=== PATIENT | female | born 1955 | race Caucasian/White ===

== ENCOUNTER → 2016-04-05 | Outpatient (CLI) | payer BC | END | disposition home or self-care (01) | LOC: C.PAPS 16:27 | PROVIDERS: ATTEND Obstetrics & Gynecology | DX: Z01.419 Encounter for gynecological examination (general) (routine) without abnormal findings (principal) ==

== ENCOUNTER → 2016-09-27 | Outpatient (CLI) | payer BC ==
--- NOTE | 2016-09-27 15:19 | MAMMOGRAPHY REPORT ---
BILATERAL DIGITAL SCREENING MAMMOGRAM TOMOSYNTHESIS WITH CAD: 09/27/2016 CLINICAL HISTORY: Routine screening. Patient has no complaints. TECHNIQUE: Breast tomosynthesis in addition to standard 2D mammography was performed. Current study was also evaluated with a Computer Aided Detection (CAD) system. COMPARISON: Comparison is made to exams dated: 09/17/2015 mammogram, 09/04/2014 mammogram, 08/29/2013 m ammogram, 08/28/2012 mammogram, 08/28/2011 mammogram, and 08/24/2009 mammogram - [facility] ter. BREAST COMPOSITION: The tissue of both breasts is heterogeneously dense, which may obscure small mas ses. FINDINGS: The parenchymal pattern is unchanged. No developing mass, architectural distortion or clus ter of suspicious microcalcifications is seen in either breast. IMPRESSION: ACR BI-RADS CATEGORY 2: BENIGN There is no mammographic evidence of malignancy. A 1 year screening mammogram is recommended. The pa tient will receive written notification of the results. Approximately 10% of breast cancers are not detected with mammography. A negative mammographic report should not delay biopsy if a clinically suggestive mass is present. Anila Miranda M.D. ay/:09/27/2016 13:01:53 [employer]: Cassia Posey, [facility] letter sent: Normal 1/2 BI-RADS Code: ACR BI-RADS Category 2: Benign
== END | disposition home or self-care (01) ==
LOC: C.MAMM 10:20
PROVIDERS: ATTEND Family Medicine
DX: Z12.31 Encounter for screening mammogram for malignant neoplasm of breast (principal)

== ENCOUNTER → 2017-10-01 | Outpatient (CLI) | payer OTHER ==
--- NOTE | 2017-10-02 14:57 | MAMMOGRAPHY REPORT ---
BILATERAL DIGITAL SCREENING MAMMOGRAM TOMOSYNTHESIS WITH CAD: 10/01/2017 CLINICAL HISTORY: Routine screening. TECHNIQUE: The study was acquired using full field digital technology and interpreted from soft copy. Breast tomosynthesis in addition to standard 2D mammography was performed. Current study was also ev aluated with a Computer Aided Detection (CAD) system. COMPARISON: Comparison is made to exams dated: 09/27/2016 mammogram, 09/17/2015 mammogram, 09/04/2014 ma mmogram, 08/29/2013 mammogram, 08/28/2012 mammogram, and 08/28/2011 mammogram - [facility] ter. BREAST COMPOSITION: The tissue of both breasts is heterogeneously dense, which may obscure small mass es. FINDINGS: There has been no significant interval change compared to prior mammograms. A few benign-a ppearing calcifications. No suspicious spiculated or irregular mass, developing asymmetry, architectu ral distortion or cluster of microcalcifications is seen. IMPRESSION: ACR BI-RADS CATEGORY 1: NEGATIVE There is no mammographic evidence of malignancy. A 1 year screening mammogram is recommended.( 019) The patient will receive written notification of the results. Some breast cancers are not detected with mammography. A negative mammographic report should not arabella y biopsy if a clinically suggestive mass is present. Anila Miranda M.D. ay/:10/01/2017 15:25:48 [employer]: RT Holly(Enrique)(M), [facility] letter sent: Normal 1/2 BI-RADS Code: ACR BI-RADS Category 1: Negative
== END | disposition home or self-care (01) ==
LOC: C.MAMM 10:23
PROVIDERS: ATTEND Family Medicine
DX: Z12.31 Encounter for screening mammogram for malignant neoplasm of breast (principal)

== ENCOUNTER 2019-07-23 10:17 | Observation (INO) ==
[2019-07-23] MEDS ORDERED: dilTIAZem HCl 5 MG/ML 5 ML VIAL IV STA ×3 (10:35→17:01)
[2019-07-23] MEDS ORDERED: SODIUM CHLORIDE 0.9% 1000ML 500 ML IV ONE ×2 (10:35→11:15)
[2019-07-23] MEDS ORDERED: MAGNESIUM SULFATE / D5W 1 GM/100 ML BAG IV STA (10:36)
--- NOTE | 2019-07-23 10:41 | Emergency Department Note ---
Impression & Plan Atrial fibrillation with rapid ventricular response, Palpitation ED Provider Note NAME: LARA APONTE AGE: 63 SEX: F : 1955 ARRIVES VIA: Walk-In INFORMANT: Patient, ED PROVIDER(S): Sam Holley DO CHIEF COMPLAINT: Palpitations HPI: The patient is a 63-year-old female who presented to the emergency department for an evaluation of palpitations. The patient states that she started having palpitations at approximately 4:00 this morning. She states the palpitations woke her up and she felt that her heart was racing. She also describes epigastric pain as heartburn as well as shortness of breath and generalized weakness. She denies any swelling in the legs or syncope. She states that she has not had similar symptoms in the past. She states symptoms are somewhat worsened with exertion and somewhat relieved with rest. She denies having any nausea vomiting or recent illnesses. The patient called her primary care physician and was instructed to come to the emergency department. ROS: See above HPI for pertinent positives & negatives. A total of 10 systems reviewed and were otherwise negative. PAST MEDICAL HISTORY: See Below PAST SURGICAL HISTORY: See Below FAMILY HISTORY: See Below SOCIAL HISTORY: See Below HOME MEDICATIONS: See Below ALLERGIES: See Below VITALS: See Below PHYSICAL EXAMINATION: GENERAL: Patient is awake alert in no acute distress patient is resting comfortably and showing no signs of anxiety EYES: The conjunctivae are clear. The pupils are round and reactive. EARS, NOSE, MOUTH AND THROAT: The nose is without any evidence of any deformity. Mucous membranes are moist. Tongue is midline. NECK: The neck is nontender and supple. RESPIRATORY: Normal respiratory effort is noted there is no evidence of wheezing rhonchi or rales CARDIOVASCULAR: Tachycardic rate with regular rhythm was noted. It was difficult to auscultate for murmur. GASTROINTESTINAL: The abdomen is soft. Abdomen is nontender. MUSCULOSKELETAL/EXTREMITIES: There is no evidence of gross deformity full range of motion is noted in the hips and shoulders. SKIN: There is no obvious evidence of any rash. There are no petechiae, pallor or cyanosis noted. NEUROLOGIC: Patient is awake alert and oriented x3 strength is symmetric patellar reflexes are 2+ bilaterally MEDICAL DECISION MAKING: The patient is a 63-year-old female who presented to the emergency department for an evaluation of palpitations. The patient had acute onset of palpitations earlier today. She has never had similar symptoms in the past. The patient was found to be in atrial fibrillation with rapid ventricular response. The patient was treated with IV fluids IV magnesium and IV Cardizem. The patient was reevaluated multiple times. Her heart rate significantly improved as well as her symptoms. I discussed the patient's laboratory and radiographic studies wit h her. [facility] have agreed to evaluate the patient in the emergency department for further management disposition. Triage Nursing notes reviewed. Prior medical records reviewed Vital Signs: reviewed and remarkable for tachycardia Differential diagnosis: Premature contractions, electrolyte abnormality, cardiac dysrhythmia, thyroid dysfunction, pulmonary embolism, infection, gastrointestinal, as well as other pathologies. ER treatment provided: See below Diagnostics interpreted by me: ECG: EKG was obtained in the emergency department. My interpretation is narrow complex tachycardia at 152 bpm. There were no PVCs. Inferior and lateral ST depressions were noted. There was no previous EKG for comparison. After modified Valsalva the patient's rhythm changed so repeat EKG was obtained. This revealed narrow complex tachycardia [address] and inferior ST depressions were noted. Atrial fibrillation was also noted. Cardiac Monitoring: An order was placed for continuous cardiac monitoring. The monitor shows a rate of 145 with atrial flutter rhythm. Laboratory studies: As stated above and show below. Imaging studies: See below Consultation(s): 1225: I discussed this case with Liliana who was [facility] They have agreed to evaluate the patient in the emergency department for further management and disposition. ED COURSE: Procedures: none Critical Care: I have personally spent greater than 45 minutes of critical care time in the direct management of this patient. This includes bedside care, interpretation of diagnostic studies, and testing, discussion with consultants, patient, and family members, and other required patient management activities. This 45 minutes is in excess of all separately billable procedures. Past Med/Surg History Medical History (Updated 07/23/19 @ 12:36 by Sam Holley DO) Anxiety Depression High cholesterol Hypertension Obstructive sleep apnea Postsurgical ovarian failure Surgical History (Updated 07/23/19 @ 10:39 by Sam Holley DO) History of hysterectomy for benign disease S/P vaginal hysterectomy S/P wisdom tooth extraction Social History (Updated 07/23/19 @ 10:39 by Sam Holley DO) Feels Safe at Home: Yes Smoking Status: Never smoker Hx Alcohol Use: Yes (Occasional) Hx Substance Use: No Allergies Allergies Allergy/AdvReac Type Severity Reaction Status Date / Time No Known Allergies Allergy Verified 07/23/19 11:27 Home Meds Home Medications Medication Instructions Recorded Confirmed calcium citrate 315 mg-vitamin D3 1 tab PO QAM 11/21/18 07/23/19 250 unit tablet multivitamin 1 tab PO QAM 11/21/18 07/23/19 losartan 25 mg tablet 25 mg PO QAM 01/27/19 07/23/19 bupropion HCl 75 mg PO QAM 07/23/19 07/23/19 cyclosporine [Restasis] 1 drp OPHTHALMIC (EYE) Q12H 07/23/19 07/23/19 fluvoxamine 100 mg PO TID 07/23/19 07/23/19 lutein 20 mg PO QAM 07/23/19 07/23/19 meloxicam 7.5 mg PO HS 07/23/19 07/23/19 omeprazole 40 mg PO QAM 07/23/19 07/23/19 pravastatin 10 mg PO HS 07/23/19 07/23/19 Results & Data (ED) Vital Signs Vital Signs - 24 hr 07/23/19 10:23 07/23/19 10:35 07/23/19 10:37 Temperature 36.6 C Temperature Source Oral Oral Pulse Rate 158 H 153 H Pulse Rate from SpO2 Sensor Respiratory Rate 20 18 Respiratory Effort / Characteristics Non-Labored Respiratory Depth Normal Blood Pressure 120/73 Blood Pressure Mean 88 Pulse Oximetry 96 Oxygen Delivery Method Room Air Room Air Sepsis Recent Fever Within 48 Hours No Sepsis Action Taken by Nursing No Action Required 07/23/19 10:39 07/23/19 10:41 07/23/19 10:50 Temperature Temperature Source Pulse Rate 155 H 153 H 151 H Pulse Rate from SpO2 Sensor Respiratory Rate 19 16 16 Respiratory Effort / Characteristics Respiratory Depth Blood Pressure 125/99 Blood Pressure Mean 113 Pulse Oximetry Oxygen Delivery Method Sepsis Recent Fever Within 48 Hours Sepsis Action Taken by Nursing 07/23/19 11:00 07/23/19 11:10 07/23/19 11:20 Temperature Temperature Source Pulse Rate 128 H 134 H 117 H Pulse Rate from SpO2 Sensor 114 H 122 H 101 H Respiratory Rate 15 10 L 10 L Respiratory Effort / Characteristics Respiratory Depth Blood Pressure 105/87 Blood Pressure Mean 91 Pulse Oximetry 94 95 95 Oxygen Delivery Method Sepsis Recent Fever Within 48 Hours Sepsis Action Taken by Nursing 07/23/19 11:27 07/23/19 11:30 07/23/19 11:31 Temperature Temperature Source Pulse Rate 115 H 122 H 117 H Pulse Rate from SpO2 Sensor 87 100 H 110 H Respiratory Rate 13 16 14 Respiratory Effort / Characteristics Respiratory Depth Blood Pressure 126/85 90/67 L Blood Pressure Mean 99 70 Pulse Oximetry 96 95 94 Oxygen Delivery Method Sepsis Recent Fever Within 48 Hours Sepsis Action Taken by Nursing 07/23/19 11:40 07/23/19 11:49 07/23/19 11:51 Temperature Temperature Source Pulse Rate 124 H 146 H 149 H Pulse Rate from SpO2 Sensor 110 H 139 H Respiratory Rate 12 16 16 Respiratory Effort / Characteristics Respiratory Depth Blood Pressure 130/99 Blood Pressure Mean 119 Pulse Oximetry 97 98 Oxygen Delivery Method Sepsis Recent Fever Within 48 Hours Sepsis Action Taken by Nursing 07/23/19 12:00 07/23/19 12:13 Temperature Temperature Source Pulse Rate 148 H 98 H Pulse Rate from SpO2 Sensor 148 H 78 Respiratory Rate 16 14 Respiratory Effort / Characteristics Respiratory Depth Blood Pressure 126/102 H 120/73 Blood Pressure Mean 108 90 Pulse Oximetry 96 86 L Oxygen Delivery Method Sepsis Recent Fever Within 48 Hours Sepsis Action Taken by Long Term Medications Current Medication List: was personally reviewed by me Laboratory Data Attestation: I reviewed the patient's lab results. Result diagrams: 07/23/19 10:40 07/23/19 10:40 Lab Results 07/23/19 07/23/19 07/23/19 Range/Units 10:40 10:40 10:40 WBC 6.93 (4.8-10.8) K/uL RBC 5.49 H (4.2-5.4) M/uL Hgb 16.2 H (12.0-16.0) g/dL Hct 47.3 H (37-47) % MCV 86.2 (80-100) fL MCH 29.5 (25-34) pg MCHC 34.2 (32-36) g/dL RDW Std Deviation 40.4 (36.4-46.3) fL RDW Coeff of Aries 12.8 (11.5-14.5) % Plt Count 266 (130-400) K/uL MPV 9.5 (7.4-10.4) fL Immature Gran % (Auto) 0.4 % Neut % (Auto) 49.4 % Lymph % (Auto) 38.5 % [place] % (Auto) 7.1 % Eos % (Auto) 3.9 % Baso % (Auto) 0.7 % Immature Gran # (Auto) 0.03 H (0.00-0.02) K/uL Neut # (Auto) 3.42 (1.4-6.5) K/uL Lymph # (Auto) 2.67 (1.2-3.4) K/uL [place] # (Auto) 0.49 (0.11-0.59) K/uL Eos # (Auto) 0.27 (0-0.5) K/uL Baso # (Auto) 0.05 (0-0.2) K/uL PT 10.4 (9.0-12.0) Seconds INR 1.0 (0.9-1.1) APTT 29.8 (21.0-31.0) Seconds PTT Ratio 1.1 Sodium 141 (136-145) mmol/L Potassium 4.1 (3.5-5.1) mmol/L Chloride 108 H (98-107) mmol/L Carbon Dioxide 28 (21-32) mmol/L Anion Gap 5.0 (3-11) BUN 21 H (7-18) mg/dl Creatinine 1.06 (0.6-1.2) mg/dl Est Cr Clr Drug Dosing 56.3 ml/min Est GFR ( Amer) 64.7 Est GFR (Non-Af Amer) 55.8 BUN/Creatinine Ratio 20.2 H (10-20) Glucose 123 H (70-99) mg/dl Calcium 9.1 (8.5-10.1) mg/dl Magnesium 2.4 (1.8-2.4) mg/dl Total Bilirubin 0.4 (0.2-1) mg/dl AST 27 (15-37) U/L ALT 29 (12-78) U/L Alkaline Phosphatase 114 (45-117) U/L Troponin I < 0.015 (0-0.045) ng/ml Total Protein 7.8 (6.4-8.2) gm/dl Albumin 3.9 (3.4-5.0) gm/dl Globulin 3.9 (2.5-4.0) gm/dl Albumin/Globulin Ratio 1.0 (0.9-2) TSH 1.740 (0.300-4.500) uIu/ml Urine Color Urine Appearance (Clear) Urine pH (4.5-7.5) Ur Specific [place] (1.000-1.030) Urine Protein (Negative) Urine Glucose (UA) (Negative) Urine Ketones (Negative) Urine Blood (Negative) Urine Nitrite (Negative) Urine Bilirubin (Negative) Urine Urobilinogen (Negative) Ur Leukocyte Esterase (Negative) 07/23/19 Range/Units 11:49 WBC (4.8-10.8) K/uL RBC (4.2-5.4) M/uL Hgb (12.0-16.0) g/dL Hct (37-47) % MCV (80-100) fL MCH (25-34) pg MCHC (32-36) g/dL RDW Std Deviation (36.4-46.3) fL RDW Coeff of Aries (11.5-14.5) % Plt Count (130-400) K/uL MPV (7.4-10.4) fL Immature Gran % (Auto) % Neut % (Auto) % Lymph % (Auto) % [place] % (Auto) % Eos % (Auto) % Baso % (Auto) % Immature Gran # (Auto) (0.00-0.02) K/uL Neut # (Auto) (1.4-6.5) K/uL Lymph # (Auto) (1.2-3.4) K/uL [place] # (Auto) (0.11-0.59) K/uL Eos # (Auto) (0-0.5) K/uL Baso # (Auto) (0-0.2) K/uL PT (9.0-12.0) Seconds INR (0.9-1.1) APTT (21.0-31.0) Seconds PTT Ratio Sodium (136-145) mmol/L Potassium (3.5-5.1) mmol/L Chloride (98-107) mmol/L Carbon Dioxide (21-32) mmol/L Anion Gap (3-11) BUN (7-18) mg/dl Creatinine (0.6-1.2) mg/dl Est Cr Clr Drug Dosing ml/min Est GFR ( Amer) Est GFR (Non-Af Amer) BUN/Creatinine Ratio (10-20) Glucose (70-99) mg/dl Calcium (8.5-10.1) mg/dl Magnesium (1.8-2.4) mg/dl Total Bilirubin (0.2-1) mg/dl AST (15-37) U/L ALT (12-78) U/L Alkaline Phosphatase (45-117) U/L Troponin I (0-0.045) ng/ml Total Protein (6.4-8.2) gm/dl Albumin (3.4-5.0) gm/dl Globulin (2.5-4.0) gm/dl Albumin/Globulin Ratio (0.9-2) TSH (0.300-4.500) uIu/ml Urine Color Yellow Urine Appearance Clear (Clear) Urine pH 7.0 (4.5-7.5) Ur Specific [place] 1.012 (1.000-1.030) Urine Protein Negative (Negative) Urine Glucose (UA) Negative (Negative) Urine Ketones Negative (Negative) Urine Blood Negative (Negative) Urine Nitrite Negative (Negative) Urine Bilirubin Negative (Negative) Urine Urobilinogen Negative (Negative) Ur Leukocyte Esterase Negative (Negative) Administered Medications Discontinued Medications Diltiazem HCl (Cardizem) 10 mg IV NOW STA Stop: 07/23/19 10:36 Last Admin: 07/23/19 10:53 Dose: 10 mg Documented by: [id number] Cosigned by: [id number] Diltiazem HCl (Cardizem) 10 mg IV NOW STA Stop: 07/23/19 11:30 Last Admin: 07/23/19 11:57 Dose: 10 mg Documented by: [id number] Cosigned by: [id number] Sodium Chloride (Nss 1000ml) 500 mls @ 999 mls/hr IV .Q31M ONE Stop: 07/23/19 11:05 Last Infusion: 07/23/19 11:20 Dose: 0 mls/hr Documented by: [id number] Admin: 07/23/19 10:53 Dose: 999 mls/hr Documented by: [id number] Magnesium Sulfate/Dextrose (Magnesium Sulfate / D5w) 1 gm in 100 mls @ 100 mls/hr IV NOW STA Stop: 07/23/19 11:35 Last Infusion: 07/23/19 11:51 Dose: 0 mls/hr Documented by: [id number] Admin: 07/23/19 10:53 Dose: 100 mls/hr Documented by: [id number] Sodium Chloride (Nss 1000ml) 500 mls @ 999 mls/hr IV .Q31M ONE Stop: 07/23/19 11:45 Last Infusion: 07/23/19 11:51 Dose: 0 mls/hr Documented by: [id number] Admin: 07/23/19 11:19 Dose: 999 mls/hr Documented by: [id number] Imaging Data Radiologist's Impression: XR chest 1V portable CLINICAL HISTORY: weakness COMPARISON STUDY: No previous studies for comparison. FINDINGS: The cardiac and mediastinal contours are normal. There is no evidence of focal pulmonary consolidation. There is no evidence of failure. No pleural effusions are visualized.[There is suspected left shoulder calcific tendinopathy. IMPRESSION: No active disease in the chest. ACT 112: Negative or not required by law. Electronically signed by: Philipp Willett M.D. 07/23/2019 10:55 AM Dictated: 07/23/19 1055 Transcribed: 07/23/19 1055 Blood Pressure Blood Pressure Findings: Normal blood pressure Discharge Plan Visit Data Chief Complaint: Cardiac Assessment Stated Complaint: HEART RATE 155 SINCE 4 AM ED Provider: Sam Holley Discharge Problem: Atrial fibrillation with rapid ventricular response, Palpitation Patient Disposition: Being Evaluated by Hospitalist Condition: Good Forms Stand Alone Forms: [facility] Prescriptions Prescriptions: No Action calcium citrate-vitamin D3 [Citracal + D Maximum] 315 mg- 250 unit tablet 1 tab PO QAM RF: 0 multivitamin [Daily Multi-Vitamin] tablet 1 tab PO QAM RF: 0 losartan 25 mg tablet 25 mg PO QAM RF: 0 pravastatin 10 mg tablet 10 mg PO HS RF: 0 fluvoxamine 100 mg tablet 100 mg PO TID RF: 0 bupropion HCl 75 mg tablet 75 mg PO QAM RF: 0 omeprazole 20 mg capsule,delayed release(DR/EC) 40 mg PO QAM RF: 0 meloxicam 7.5 mg tablet 7.5 mg PO HS RF: 0 Restasis 0.05 % [place] 1 drp OPHTHALMIC (EYE) Q12H RF: 0 lutein 20 mg Capsule 20 mg PO QAM RF: 0 Referrals Referrals: Bessie Ruffin MD [Primary Care Provider] -
--- NOTE | 2019-07-23 10:57 | XRay Report ---
XR chest 1V portable CLINICAL HISTORY: weakness COMPARISON STUDY: No previous studies for comparison. FINDINGS: The cardiac and mediastinal contours are normal. There is no evidence of focal pulmonary co nsolidation. There is no evidence of failure. No pleural effusions are visualized.[There is suspected left shoulder calcific tendinopathy. IMPRESSION: No active disease in the chest. ACT 112: Negative or not required by law. Electronically signed by: Philipp Willett M.D. 07/23/2019 10:55 AM
[2019-07-23 11:22] LABS: Basophils # (auto) 0.05 K/uL (0-0.2); Basophils % (auto) 0.7 %; Eosinophils # (auto) 0.27 K/uL (0-0.5); Eosinophils % (auto) 3.9 %; Hematocrit (blood only) 47.3 % (37-47); Hemoglobin 16.2 g/dL (12.0-16.0); Immature Granulocytes # (auto) 0.03 K/uL (0.00-0.02); Immature Granulocytes % (auto) 0.4 %; Lymphocytes # (auto) 2.67 K/uL (1.2-3.4); Lymphocytes % (auto) 38.5 %; Mean Corpuscular Hemoglobin 29.5 pg (25-34); Mean Corpuscular Hgb Conc 34.2 g/dL (32-36); Mean Corpuscular Volume 86.2 fL (80-100); Mean Platelet Volume 9.5 fL (7.4-10.4); Monocytes # (auto) 0.49 K/uL (0.11-0.59); Monocytes % (auto) 7.1 %; Neutrophils # (auto) 3.42 K/uL (1.4-6.5); Neutrophils % (auto) 49.4 %; Platelet Count 266 K/uL (130-400); RDW Coefficient of Variation 12.8 % (11.5-14.5); RDW Standard Deviation 40.4 fL (36.4-46.3); Red Blood Count 5.49 M/uL (4.2-5.4); White Blood Count 6.93 K/uL (4.8-10.8)
[2019-07-23 11:32] LABS: Partial Thromboplastin Ratio 1.1; Partial Thromboplastin Time 29.8 Seconds (21.0-31.0); Prothrombin Time 10.4 Seconds (9.0-12.0)
[2019-07-23 11:43] LABS: Alanine Aminotransferase 29 U/L (12-78); Albumin Level 3.9 gm/dl (3.4-5.0); Aspartate Aminotransferase 27 U/L (15-37); BUN Creatinine Ratio 20.2 (10-20); Bilirubin,Total 0.4 mg/dl (0.2-1); Blood Urea Nitrogen 21 mg/dl (7-18); Calcium 9.1 mg/dl (8.5-10.1); Carbon Dioxide 28 mmol/L (21-32); Chloride 108 mmol/L (98-107); Creatinine Clr Calc Pharmacy 56.3 ml/min; Est GFR (African American) 64.7; Est GFR (Non-African American) 55.8; Globulin 3.9 gm/dl (2.5-4.0); Glucose 123 mg/dl (70-99); Magnesium 2.4 mg/dl (1.8-2.4); Potassium 4.1 mmol/L (3.5-5.1); Sodium 141 mmol/L (136-145); Total Protein 7.8 gm/dl (6.4-8.2)
[2019-07-23 11:52] LABS: Alkaline Phosphatase 114 U/L (45-117); Troponin I < 0.015 ng/ml (0-0.045)
[2019-07-23 11:57] LABS: Appearance Urine Clear (Clear); Bilirubin Urine Negative (Negative); Blood Urine Negative (Negative); Color Urine Yellow; Glucose Urine UA Negative (Negative); Ketones Urine Negative (Negative); Leukocyte Esterase Urine Negative (Negative); Nitrite Urine Negative (Negative); Protein Urine Negative (Negative); Specific Gravity Urine 1.012 (1.000-1.030); Urobilinogen Urine Negative (Negative)
[2019-07-23] MEDS ORDERED: Heparin IV Standard *NO* Bolus IV ONE ×2 (12:39→15:50)
[2019-07-23] MEDS: HEPARIN SODIUM/DEXTROSE 25,000 UNITS/500 ML BAG IV SCH ×2 (13:06→14:35)
[2019-07-23] MEDS ORDERED: D5W AND NSS 1,000 ML IV SCH (13:15)
--- NOTE | 2019-07-23 13:58 | History & Physical Report ---
Date of Service July 23, 2019 Assessment & Plan (1) Atrial flutter with rapid ventricular response: 63-year-old female with history of hypertension, dyslipidemia, obstructive sleep apnea on CPAP, And other problems noted below presenting with palpitations since early this morning. #1 new onset atrial flutter, with rapid ventricular response Awakened by palpitations around 4 AM, heart rate checked with her home pulse oximeter which read 150s Patient's blood pressure is stable, saturating well on room air Given IV diltiazem 10 mg x 2 doses, initially improved, but heart rate again increased to the 120s, occasionally in the 140s start diltiazem drip Chads Vasc score is at least 2 Continue with heparin drip, standard dose,but no bolus Initial troponin negative, check 2 more times Check echocardiogram Shoulder Joiner consulted N.p.o. except medications, IV fluids ordered #2 hypertension Continue losartan 25 mg daily #3 dyslipidemia Continue pravastatin 10 mg daily #4 obstructive sleep apnea Continue CPAP while admitted #5 irritable bowel syndrome Continue omeprazole #6 generalized anxiety disorder Continue Wellbutrin and Luvox DVT prophylaxis On heparin drip Status Full code as per patient Disposition Lives with family at home Anticipate discharge to home when medically stable Follow-up with porcelain technician Follow-up with primary care physician Dr. Bessie Ruffin Admission and Anticipated Discharge Date Admission Date: 63-year-old female with history of History of Present Illness 63-year-old female with history of hypertension, dyslipidemia, sleep apnea on C PAP, irritable bowel syndrome, generalized disorder Presenting with palpitations and elevated heart rate since earlier this morning. Patient was at her baseline state of health until this morning around 4 AM, patient was awakened by sensation of palpitations. When she checked her heart rate using her home pulse oximeter, it showed heart rate of 155. It was associated with heartburn, for which the patient took Maalox, which alleviated the heartburn. She woke up around 8 AM, still with palpitations and heart rate was in the 150s. No chest pain, shortness of breath, dizziness, diaphoresis. She called her primary care physician's office, and was directed to the emergency room. At the ER, the patient was received with heart rate of 150s, blood pressure was stable. EKG showed atrial flutter with RVR. Initial troponin negative. Given a total of 2 doses of IV diltiazem 10 mg an hour apart, and was started on a heparin drip with no bolus. Heart rate improved to the high 90s, up to 120s. On my exam, the patient is seen sitting up in bed, comfortable, not in distress. She states that her palpitations have resolved since admission. Denies active shortness of breath, chest pain, dizziness, nausea. Monitor showing heart rate of 120s during my exam. No other symptoms Primary Care Provider: Bessie Ruffin MD Allergies Allergy/AdvReac Type Severity Reaction Status Date / Time No Known Allergies Allergy Verified 07/23/19 11:27 Home Medications Home Medications Medication Instructions Recorded Confirmed Type calcium citrate 315 mg-vitamin D3 1 tab PO QAM 11/21/18 07/23/19 History 250 unit tablet multivitamin 1 tab PO QAM 11/21/18 07/23/19 History losartan 25 mg tablet 25 mg PO QAM 01/27/19 07/23/19 History bupropion HCl 75 mg PO QAM 07/23/19 07/23/19 History cyclosporine [Restasis] 1 drp OPHTHALMIC (EYE) Q12H 07/23/19 07/23/19 History fluvoxamine 100 mg PO TID 07/23/19 07/23/19 History lutein 20 mg PO QAM 07/23/19 07/23/19 History meloxicam 7.5 mg PO HS 07/23/19 07/23/19 History omeprazole 40 mg PO QAM 07/23/19 07/23/19 History pravastatin 10 mg PO HS 07/23/19 07/23/19 History Past Med/Surg History Medical History (Updated 07/23/19 @ 13:52 by Christophe Giron MD) Anxiety Depression High cholesterol Hypertension Obstructive sleep apnea Postsurgical ovarian failure Surgical History (Updated 07/23/19 @ 10:39 by Sam Holley DO) History of hysterectomy for benign disease S/P vaginal hysterectomy S/P wisdom tooth extraction Social History (Updated 07/23/19 @ 10:39 by Sam Holley DO) Feels Safe at Home: Yes Smoking Status: Never smoker Hx Alcohol Use: Yes (Occasional) Hx Substance Use: No Review of Systems Review of Systems: All systems reviewed & are unremarkable except as noted in HPI & below Physical Exam Physical Exam: General- oriented x 3, not in distress, speaks in sentences with no effort or accessory muscle use Head- atraumatic Eyes- PERRL, EOMI, anicteric ENT- oropharynx clear Neck- supple, no JVD, no adenopathy, no thyromegaly; carotids +2/2, no bruits appreciated Lungs- clear to auscultation bilaterally, no rales/wheezes Heart- normal rate, irregularly irregular rhythm; no murmur, no gallop, no rub appreciated Abdomen- normal bowel sounds, nondistended, soft, nontender, no masses or hepatosplenomegaly Extremities- no pretibial edema, no calf tenderness; peripheral pulses intact Neuro- alert, oriented x 3; CN 2-12 grossly intact; motor 5/5 bilaterally;sensation 100% on all extremities; no other gross focal neurologic deficits Skin- warm & dry Results & Data Results & Data ([facility]) Vital Signs (Past 12 Hours) Vital Signs Temp Pulse Resp BP Pulse Ox 07/23/19 13:40 77 12 07/23/19 13:31 107 H 14 132/88 07/23/19 13:30 107 H 97 07/23/19 13:20 136 H 16 07/23/19 13:12 120 H 15 148/84 H 96 07/23/19 13:00 134 H 21 128/87 97 07/23/19 12:50 112 H 16 93 07/23/19 12:40 122 H 17 07/23/19 12:30 98 H 14 111/69 96 07/23/19 12:20 102 H 13 97 07/23/19 12:13 98 H 14 120/73 86 L 07/23/19 12:00 148 H 16 126/102 H 96 07/23/19 11:51 149 H 16 07/23/19 11:49 146 H 16 130/99 98 07/23/19 11:40 124 H 12 97 07/23/19 11:31 117 H 14 90/67 L 94 07/23/19 11:30 122 H 16 95 07/23/19 11:27 115 H 13 126/85 96 07/23/19 11:20 117 H 10 L 95 07/23/19 11:10 134 H 10 L 95 07/23/19 11:00 128 H 15 105/87 94 07/23/19 10:50 151 H 16 07/23/19 10:41 153 H 16 07/23/19 10:39 155 H 19 125/99 07/23/19 10:37 153 H 18 07/23/19 10:23 36.6 C 158 H 20 120/73 96 Laboratory Results Laboratory Results - last 24 hr 07/23/19 07/23/19 07/23/19 10:40 10:40 10:40 WBC 6.93 RBC 5.49 H Hgb 16.2 H Hct 47.3 H MCV 86.2 MCH 29.5 MCHC 34.2 RDW Std Deviation 40.4 RDW Coeff of Aries 12.8 Plt Count 266 MPV 9.5 Immature Gran % (Auto) 0.4 Neut % (Auto) 49.4 Lymph % (Auto) 38.5 [place] % (Auto) 7.1 Eos % (Auto) 3.9 Baso % (Auto) 0.7 Immature Gran # (Auto) 0.03 H Neut # (Auto) 3.42 Lymph # (Auto) 2.67 [place] # (Auto) 0.49 Eos # (Auto) 0.27 Baso # (Auto) 0.05 PT 10.4 INR 1.0 APTT 29.8 PTT Ratio 1.1 Sodium 141 Potassium 4.1 Chloride 108 H Carbon Dioxide 28 Anion Gap 5.0 BUN 21 H Creatinine 1.06 Est Cr Clr Drug Dosing 56.3 Est GFR ( Amer) 64.7 Est GFR (Non-Af Amer) 55.8 BUN/Creatinine Ratio 20.2 H Glucose 123 H Calcium 9.1 Magnesium 2.4 Total Bilirubin 0.4 AST 27 ALT 29 Alkaline Phosphatase 114 Troponin I < 0.015 Total Protein 7.8 Albumin 3.9 Globulin 3.9 Albumin/Globulin Ratio 1.0 TSH 1.740 Urine Color Urine Appearance Urine pH Ur Specific Mineral Urine Protein Urine Glucose (UA) Urine Ketones Urine Blood Urine Nitrite Urine Bilirubin Urine Urobilinogen Ur Leukocyte Esterase 07/23/19 11:49 WBC RBC Hgb Hct MCV MCH MCHC RDW Std Deviation RDW Coeff of Aries Plt Count MPV Immature Gran % (Auto) Neut % (Auto) Lymph % (Auto) [place] % (Auto) Eos % (Auto) Baso % (Auto) Immature Gran # (Auto) Neut # (Auto) Lymph # (Auto) [place] # (Auto) Eos # (Auto) Baso # (Auto) PT INR APTT PTT Ratio Sodium Potassium Chloride Carbon Dioxide Anion Gap BUN Creatinine Est Cr Clr Drug Dosing Est GFR ( Amer) Est GFR (Non-Af Amer) BUN/Creatinine Ratio Glucose Calcium Magnesium Total Bilirubin AST ALT Alkaline Phosphatase Troponin I Total Protein Albumin Globulin Albumin/Globulin Ratio TSH Urine Color Yellow Urine Appearance Clear Urine pH 7.0 Ur Specific Mineral 1.012 Urine Protein Negative Urine Glucose (UA) Negative Urine Ketones Negative Urine Blood Negative Urine Nitrite Negative Urine Bilirubin Negative Urine Urobilinogen Negative Ur Leukocyte Esterase Negative ECG Additional Comments: Heart rate 152, atrial flutter Code Status & VTE Plan Code Status Full code as per patient VTE Prophylaxis Plan VTE Prophylaxis will be ordered: Yes
[2019-07-23] MEDS ORDERED: STAT IV Infusion **Titration per Protocol STA (15:50)
[2019-07-23] MEDS ORDERED: HEPARIN SODIUM/DEXTROSE 25,000 UNITS/500 ML BAG IV SCH (15:50)
[2019-07-23] MEDS ORDERED: ACETAMINOPHEN 325 MG TAB PO PRN (15:50)
[2019-07-23] MEDS ORDERED: dilTIAZem HCL 125 MG in DEXTROSE 5% 100 ML IV SCH (15:50)
[2019-07-23] MEDS: FLUVOXAMINE MALEATE 50 MG TAB PO SCH ×2 (16:53→20:20)
[2019-07-23] MEDS ORDERED: dilTIAZem HCl 5 MG/ML 5 ML VIAL IV ONE (16:56)
--- NOTE | 2019-07-23 17:27 | Cardiology Consultation ---
Date of Consultation July 23, 2019 Assessment & Plan (1) Atrial flutter with rapid ventricular response: (2) Palpitation: (3) HTN (hypertension): Recommend 20 mg IV Cardizem now. Titrate diltiazem infusion to 10 mg/h. Initiate oral beta-jose therapy, metoprolol 25 mg twice daily, first dose now. Continue IV heparin infusion. Discussed potential need for external direct-current cardioversion. Recommend medical management/rate control for the time being. Also discussed need for oral anticoagulation. Reviewed risk / benefit of DOAC vs. coumadin. Recommend transition to Eliquis prior to discharge. Bedside 2D transthoracic echocardiogram ordered with results pending. I will continue to follow closely during hospitalization. Thank you for allowing me to participate in the care of your patient. History of Present Illness Reason for Consultation: Atrial flutter with rapid ventricular response Requesting Physician: Dr. Giron Attending Physician: Christophe Giron MD History of Present Illness Patient seen and examined at the bedside. Reports episode of palpitations and heartburn awakening her from sleep at approximately 4 AM. Patient fell back asleep until approximately 8 AM however when she awoke she checked her heart rate via pulse oximeter. Her heart rate was approximately 150 bpm. Subsequently came to the emergency department for evaluation and treatment. ECG confirms presence of atrial flutter with variable AV block, and rapid ventricular response. Patient notes faint palpitations at this time. Denies chest pain or dyspnea at rest. Notes fatigue and mild dyspnea with exertion today. Denies lightheadedness, dizziness, syncope, or near syncope. Denies prior history of atrial dysrhythmias, coronary disease, congestive heart failure, diabetes, CVA, or rheumatic fever as a child. Intravenous Cardizem initiated in the emergency department. Heart rate remains elevated at approximate 150 bpm. Telemetry confirms atrial flutter. Denies any excessive caffeine or alcohol intake. No fever, chills, cough, or sick cont acts. Offers no other concerns/complaints at this time. Allergies Allergy/AdvReac Type Severity Reaction Status Date / Time No Known Allergies Allergy Verified 07/23/19 11:27 Home Medications Home Medications Medication Instructions Recorded Confirmed Type calcium citrate 315 mg-vitamin D3 1 tab PO QAM 11/21/18 07/23/19 History 250 unit tablet multivitamin 1 tab PO QAM 11/21/18 07/23/19 History losartan 25 mg tablet 25 mg PO QAM 01/27/19 07/23/19 History bupropion HCl 75 mg PO QAM 07/23/19 07/23/19 History cyclosporine [Restasis] 1 drp OPHTHALMIC (EYE) Q12H 07/23/19 07/23/19 History fluvoxamine 100 mg PO TID 07/23/19 07/23/19 History lutein 20 mg PO QAM 07/23/19 07/23/19 History meloxicam 7.5 mg PO HS 07/23/19 07/23/19 History omeprazole 40 mg PO QAM 07/23/19 07/23/19 History pravastatin 10 mg PO HS 07/23/19 07/23/19 History Patient History Medical History Anxiety Depression High cholesterol Hypertension Obstructive sleep apnea Postsurgical ovarian failure Surgical History History of hysterectomy for benign disease S/P vaginal hysterectomy S/P wisdom tooth extraction Social History Preferred Language: Estonian Communication Ability: Effective Client Administrator Required: No Beliefs That Will Affect Care: None Current Living Situation: Spouse Other Information That Helps Us Care for You: No Feels Safe at Home: Yes Safety Concerns: Feels Safe At This Time Smoking Status: Never smoker Do You Dip or Chew Tobacco: No ; Second Hand Exposure: No ; Tobacco Cessation Education Requested by Patient: No Hx Alcohol Use: No Hx Substance Use: No Review of Systems Review of Systems: All systems reviewed & are unremarkable except as noted in HPI & below Physical Exam Constitutional: well developed and well nourished; no acute distress and not ill appearing Respiratory: normal respiratory effort, lungs clear to auscultation Auscultation: no crackles, no rales, no rhonchi and no wheezes Cardiovascular: Rate/Rhythm: + tachycardic and + irregularly irregular Heart Sounds: normal S1 and normal S2; no murmur Vessels: no JVD and no carotid bruit Extremities: no edema Gastrointestinal (Abdomen): Inspection/Auscultation: abdomen normal to inspection and normal bowel sounds; abdomen not distended Percussion/Palpation: abdomen soft; abdomen nontender, no guarding and abdomen not rigid Musculoskeletal: Extremities: strength 5/5 throughout Skin: no rashes, warm and dry Neurologic: moves all extremities; no focal motor deficits Speech / Cognition: normal speech Motor/Sensory: no tremor Psychiatric: A+Ox3, euthymic affect Results & Data ([facility]) Vital Signs (Past 12 Hours) Vital Signs Temp Pulse Pulse Resp BP BP Pulse Ox 07/23/19 14:37 36.7 C 133 H 16 115/71 98 07/23/19 14:20 119 H 13 07/23/19 14:10 153 H 13 07/23/19 14:00 83 14 124/97 07/23/19 13:50 86 07/23/19 13:40 77 12 07/23/19 13:31 107 H 14 132/88 07/23/19 13:30 107 H 97 07/23/19 13:20 136 H 16 07/23/19 13:12 120 H 15 148/84 H 96 07/23/19 13:00 134 H 21 128/87 97 07/23/19 12:50 112 H 16 93 07/23/19 12:40 122 H 17 07/23/19 12:30 98 H 14 111/69 96 07/23/19 12:20 102 H 13 97 07/23/19 12:13 98 H 14 120/73 86 L 07/23/19 12:00 148 H 16 126/102 H 96 07/23/19 11:51 149 H 16 07/23/19 11:49 146 H 16 130/99 98 07/23/19 11:40 124 H 12 97 07/23/19 11:31 117 H 14 90/67 L 94 07/23/19 11:30 122 H 16 95 07/23/19 11:27 115 H 13 126/85 96 07/23/19 11:20 117 H 10 L 95 07/23/19 11:10 134 H 10 L 95 07/23/19 11:00 128 H 15 105/87 94 07/23/19 10:50 151 H 16 07/23/19 10:41 153 H 16 07/23/19 10:39 155 H 19 125/99 07/23/19 10:37 153 H 18 07/23/19 10:23 36.6 C 158 H 20 120/73 96
[2019-07-23] MEDS: RESTASIS EYE DROPS: ORDER AWAITING ACTION SCH (17:42)
[2019-07-23] MEDS ORDERED: METOPROLOL TARTRATE 25 MG TAB PO ONE (17:45)
[2019-07-23 19:54] LABS: Partial Thromboplastin Ratio 2.1
[2019-07-23 20:06] LABS: Partial Thromboplastin Time 57.2 Seconds (21.0-31.0)
[2019-07-23] MEDS: METOPROLOL TARTRATE 25 MG TAB PO SCH (20:20)
[2019-07-23] MEDS ORDERED: PRAVASTATIN SOD 10 MG TAB PO SCH (21:00)
[2019-07-23] MEDS ORDERED: Nursing to Pharmacy Communication ONE (21:24)
[2019-07-24] MEDS: RESTASIS EYE DROPS: ORDER AWAITING ACTION SCH ×2 (01:15→08:25)
[2019-07-24 07:05] LABS: Hematocrit (blood only) 42.3 % (37-47); Mean Corpuscular Hemoglobin 28.3 pg (25-34); Mean Corpuscular Hgb Conc 33.1 g/dL (32-36); Mean Corpuscular Volume 85.6 fL (80-100); Mean Platelet Volume 9.5 fL (7.4-10.4); Platelet Count 218 K/uL (130-400); RDW Coefficient of Variation 12.8 % (11.5-14.5); RDW Standard Deviation 39.9 fL (36.4-46.3); Red Blood Count 4.94 M/uL (4.2-5.4)
[2019-07-24 07:25] LABS: Partial Thromboplastin Ratio 2.2
[2019-07-24 07:33] LABS: Partial Thromboplastin Time 62.5 Seconds (21.0-31.0)
[2019-07-24 07:45] LABS: BUN Creatinine Ratio 21.4 (10-20); Calcium 9.1 mg/dl (8.5-10.1); Creatinine Clr Calc Pharmacy 60.5 ml/min; Est GFR (African American) 70.3; Est GFR (Non-African American) 60.6; Potassium 4.3 mmol/L (3.5-5.1)
[2019-07-24] MEDS: FLUVOXAMINE MALEATE 50 MG TAB PO SCH ×2 (08:21→13:12)
[2019-07-24] MEDS ORDERED: Nursing to Pharmacy Communication ONE ×2 (08:26→09:41)
[2019-07-24 08:37] LABS: Basophils % (auto) 0.9 %; Eosinophils % (auto) 5.1 %; Immature Granulocytes % (auto) 0.4 %; Lymphocytes % (auto) 50.7 %; Monocytes % (auto) 7.1 %; Neutrophils % (auto) 35.8 %
[2019-07-24 08:38] LABS: Basophils # (auto) 0.06 K/uL (0-0.2); Eosinophils # (auto) 0.36 K/uL (0-0.5); Immature Granulocytes # (auto) 0.03 K/uL (0.00-0.02); Lymphocytes # (auto) 3.55 K/uL (1.2-3.4); Monocytes # (auto) 0.05 K/uL (0.11-0.59)
[2019-07-24] MEDS ORDERED: [UNRECOGNIZED DRUG - REMARK] SCH (09:00)
[2019-07-24] MEDS ORDERED: PANTOprazole 40 MG TAB PO SCH (09:00)
[2019-07-24] MEDS ORDERED: buPROPion HCl 75 MG TABLET PO SCH (09:00)
[2019-07-24] MEDS ORDERED: CALCIUM CITRATE 950 MG TAB PO SCH (09:00)
[2019-07-24] MEDS ORDERED: LOSARTAN POTASSIUM 25 MG TAB PO SCH (09:00)
[2019-07-24] MEDS ORDERED: MULTIVITAMIN TAB PO SCH (09:00)
[2019-07-24] MEDS ORDERED: APIXABAN 5 MG TABLET PO SCH (09:45)
[2019-07-24] MEDS: METOPROLOL TARTRATE 25 MG TAB PO SCH (10:08)
--- NOTE | 2019-07-24 10:55 | Cardiology Progress Note ---
Date of Service July 24, 2019 Assessment & Plan (1) Atrial flutter with rapid ventricular response: (2) Palpitation: (3) HTN (hypertension): Patient converted to sinus rhythm at approximately 6 PM 07/23/2019. Continue oral metoprolol tartrate, 25 mg twice daily. Transition IV heparin to Eliquis 5 mg twice daily. Resting 2D transthoracic echocardiogram demonstrates preserved LV systolic function without significant valvular pathology. Patient may be discharged from a cardiovascular perspective. Instructed she may take an additional 25 mg of metoprolol if palpitations/atrial flutter recurs. I will see her for outpatient cardiology follow-up in 1 to 2 weeks. Subjective Patient seen and examined at the bedside. Converted to sinus rhythm at approximately 6 PM yesterday. IV diltiazem discontinued. Feeling well from a cardiovascular perspective today. Denies palpitations. Tolerated her a.m. meal. No signs/symptoms of GI/ blood loss. Has many questions regarding prognosis related to atrial flutter. Review of Systems Review of Systems: All systems reviewed & are unremarkable except as noted in HPI & below Physical Exam Constitutional: well developed and well nourished; no acute distress and not ill appearing Respiratory: normal respiratory effort, lungs clear to auscultation Auscultation: no crackles, no rales, no rhonchi and no wheezes Cardiovascular: Rate/Rhythm: regular rate and regular rhythm Heart Sounds: normal S1 and normal S2; no murmur Vessels: no JVD and no carotid bruit Extremities: no edema Gastrointestinal (Abdomen): Inspection/Auscultation: abdomen normal to inspection and normal bowel sounds; abdomen not distended Percussion/Palpation: abdomen soft; abdomen nontender, no guarding and abdomen not rigid Musculoskeletal: Extremities: strength 5/5 throughout Skin: no rashes, warm and dry Neurologic: moves all extremities; no focal motor deficits Speech / Cognition: normal speech Motor/Sensory: no tremor Psychiatric: A+Ox3, euthymic affect Results & Data Vital Signs (Past 12 Hours) Vital Signs Temp Pulse Pulse Resp BP Pulse Ox 07/24/19 07:42 36.5 C 68 17 115/80 97 07/24/19 03:56 36.4 C L 64 18 109/73 95 07/23/19 23:36 36.4 C L 74 16 93/63 L 96
--- NOTE | 2019-07-24 13:21 | Hospitalist Progress Note ---
Date of Service July 24, 2019 Assessment & Plan (1) Atrial flutter with rapid ventricular response: Patient is a 63 yr female with H/O hypertension, dyslipidemia, obstructive sleep apnea on CPAP presents with palpitations. New onset atrial flutter, with rapid ventricular response CXR:No active disease in the chest. ECHO: No significant valvular pathology. TSH:1.7 Cardiac enzymes negative Continue metoprolol 25 mg twice daily IV heparin transition to Eliquis 5 mg twice daily Appreciate cardiology input Needs follow-up with cardiology in 1 to 2 weeks Hypertension Continue losartan 25 mg daily, Metoprolol Dyslipidemia Continue pravastatin Obstructive sleep apnea Continue CPAP Irritable bowel syndrome Continue omeprazole Generalized anxiety disorder Continue Wellbutrin, Luvox DVT Px: Eliquis Status Full code Disposition Plan to discharge home today Admission and Anticipated Discharge Date Admission Date: July 23, 2019 Subjective Patient is seen and examined at bedside Converted to sinus rhythm yesterday Denies any chest pain, shortness of breath, dizziness, nausea, abdominal pain Plan to be discharged home today Review of Systems Review of Systems: All systems reviewed & are unremarkable except as noted in HPI & below Physical Exam Physical Exam: Physical Exam: Vitals signs as noted above General Appearance:Moderately built and nourished, no apparent distress Head: normocephalic, Atraumatic Eyes: normal inspection, EOMI Neck: supple, Trachea midline Respiratory/Chest: Normal breath sounds, CTA, No accessory muscle use Cardiovascular: S1, S2, No murmur Abdomen/GI:Soft, Non tender, Bowel sounds present Extremities/Musculoskelatal:normal inspection, no edema Neurologic/Psych:AAOX3, grossly no focal neurological deficits Skin: normal color, warm Results & Data Results & Data ([facility]) Vital Signs (Past 12 Hours) Vital Signs Temp Pulse Pulse Resp BP Pulse Ox 07/24/19 11:10 36.8 C 64 17 127/72 95 07/24/19 07:42 36.5 C 68 17 115/80 97 07/24/19 03:56 36.4 C L 64 18 109/73 95 Laboratory Results Short CBC 07/24/19 Range/Units 06:44 WBC 7.00 (4.8-10.8) K/uL Hgb 14.0 (12.0-16.0) g/dL Hct 42.3 (37-47) % Plt Count 218 (130-400) K/uL BMP 07/24/19 06:44 Sodium 140 Potassium 4.3 Chloride 109 H Carbon Dioxide 26 BUN 21 H Creatinine 0.99 Glucose 103 H Calcium 9.1 Cardiac Enzymes 07/23/19 07/23/19 Range/Units 16:08 21:47 Troponin I < 0.015 < 0.015 (0-0.045) ng/ml
--- NOTE | 2019-07-24 13:39 | Discharge Summary ---
Date of Service July 24, 2019 Admission HPI Per Admitting Provider 63-year-old female with history of hypertension, dyslipidemia, sleep apnea on CPAP, irritable bowel syndrome, generalized disorder Presenting with palpitations and elevated heart rate since earlier this morning. Patient was at her baseline state of health until this morning around 4 AM, patient was awakened by sensation of palpitations. When she checked her heart rate using her home pulse oximeter, it showed heart rate of 155. It was associated with heartburn, for which the patient took Maalox, which alleviated the heartburn. She woke up around 8 AM, still with palpitations and heart rate was in the 150s. No chest pain, shortness of breath, dizziness, diaphoresis. She called her primary care physician's office, and was directed to the emergency room. At the ER, the patient was received with heart rate of 150s, blood pressure was stable. EKG showed atrial flutter with RVR. Initial troponin negative. Given a total of 2 doses of IV diltiazem 10 mg an hour apart, and was started on a heparin drip with no bolus. Heart rate improved to the high 90s, up to 120s. On my exam, the patient is seen sitting up in bed, comfortable, not in distress. She states that her palpitations have resolved since admission. Denies active shortness of breath, chest pain, dizziness, nausea. Monitor showing heart rate of 120s during my exam. No other symptoms Admission Exam Per Admitting Provider Physical Exam Physical Exam: General- oriented x 3, not in distress, speaks in sentences with no effort or accessory muscle use Head- atraumatic Eyes- PERRL, EOMI, anicteric ENT- oropharynx clear Neck- supple, no JVD, no adenopathy, no thyromegaly; carotids +2/2, no bruits appreciated Lungs- clear to auscultation bilaterally, no rales/wheezes Heart- normal rate, irregularly irregular rhythm; no murmur, no gallop, no rub appreciated Abdomen- normal bowel sounds, nondistended, soft, nontender, no masses or hepatosplenomegaly Extremities- no pretibial edema, no calf tenderness; peripheral pulses intact Neuro- alert, oriented x 3; CN 2-12 grossly intact; motor 5/5 bilaterally;sensation 100% on all extremities; no other gross focal neurologic deficits Skin- warm & dry Principal Diagnosis Atrial Flutter RVR Discharge Data Allergies Allergy/AdvReac Type Severity Reaction Status Date / Time No Known Allergies Allergy Verified 07/23/19 11:27 Consultations 07/23/19 12:28 ED Decision to Admit Stat 07/23/19 15:50 Consult Cardiology Stat Procedures Performed CXR:No active disease in the chest. ECHO: No significant valvular pathology. Hospital Course (1) Atrial flutter with rapid ventricular response: Patient is a 63 yr female with H/O hypertension, dyslipidemia, obstructive sleep apnea on CPAP presents with palpitations. New onset atrial flutter, with rapid ventricular response CXR:No active disease in the chest. ECHO: No significant valvular pathology. TSH:1.7 Cardiac enzymes negative Continue metoprolol 25 mg twice daily IV heparin transition to Eliquis 5 mg twice daily Appreciate cardiology input Needs follow-up with cardiology in 1 to 2 weeks Hypertension Continue losartan 25 mg daily, Metoprolol Dyslipidemia Continue pravastatin Obstructive sleep apnea Continue CPAP Irritable bowel syndrome Continue omeprazole Generalized anxiety disorder Continue Wellbutrin, Luvox DVT Px: Eliquis Status Full code Disposition Plan to discharge home today Total Time Total Time Spent Total Time Spent (In Minutes): 40 minutes Total Time Includes: Examination of the Patient, Discharge Planning, Medication Reconciliation, Communication With Other Providers and Other Discharge Plan Discharge Items Patient Disposition: Home - Self-Care Reason For Visit: HEART RATE 155 SINCE 4 AM Discharge Diagnosis: Atrial Flutter RVR Condition on Discharge: Good Activity: Per Instructions section Exercise/Sports: Gradually increase as tolerated Non-emergency contact: Primary Care Provider and [employer] Operator Call non-emergency contact if: you have any medication questions, your symptoms worsen, your pain is not controlled, your pain is worsening, your pain is unusual for you, your pain is concerning for you and you have a fever Follow-up/Referrals: Bessie Ruffin MD [Primary Care Provider] - 07/30/19 12:00 pm (07/30/2019 12:00 PM Provider Everett Villa MD Department General Internal Medicine [facility] ) Diet: Heart Healthy Add Attending Provider Instructions: Follow-up with your primary care physician Dr. 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 Avoid NSAIDs (ibuprofen, Naproxen, Toradol, Meloxicam etc ) while on blood thinner--Eliquis as combination can increase your risk for bleeding. Seek immediate medical attention if your symptoms reoccur or worsen Pending Studies at Discharge: No Stand-Alone Forms: My [facility] Good People, Smoking Cessation Medications and DC Order Prescriptions: New Eliquis 5 mg Tablet 5 mg PO BID Qty: 60 RF: 1 metoprolol tartrate 25 mg Tablet 25 mg PO BID Qty: 60 RF: 1 Continued calcium citrate-vitamin D3 [Citracal + D Maximum] 315 mg- 250 unit tablet 1 tab PO QAM RF: 0 multivitamin [Daily Multi-Vitamin] tablet 1 tab PO QAM RF: 0 losartan 25 mg tablet 25 mg PO QAM RF: 0 pravastatin 10 mg tablet 10 mg PO HS RF: 0 fluvoxamine 100 mg tablet 100 mg PO TID RF: 0 bupropion HCl 75 mg tablet 75 mg PO QAM RF: 0 omeprazole 20 mg capsule,delayed release(DR/EC) 40 mg PO QAM RF: 0 Restasis 0.05 % Dropperette 1 drp OPHTHALMIC (EYE) Q12H RF: 0 lutein 20 mg Capsule 20 mg PO QAM RF: 0 Discontinued meloxicam 7.5 mg tablet 7.5 mg PO HS RF: 0 Discharge Orders: Discharge Order (Routine); Ordered 07/24/19 Ordered By: Helder Rose/Other Patient Handouts: Low-Salt Choices, Exercise Healthy Heart, Women and Heart Disease Understanding the Risks, Foods Heart Healthy, BP Check Steps, AFib, Atrial Flutter, Apixaban oral tablets, Metoprolol tablets Admission Data Admit Date/Time: 07/23/19 12:49 Attending Provider: Helder Richmond Admit Provider: Christophe Giron Primary Care Provider: Bessie Ruffin Other Providers: Christophe Giron ; James Leon Other Interventions: Discharge Summary Assessment (RN) Last Done: 07/24/19 14:43 DC Date/Time DO NOT enter until pt leaves facility: 07/24/19 16:21
--- NOTE | 2019-07-24 14:32 | Electrocardiogram Report ---
Test Reason : Blood Pressure : / mmHG Vent. Rate : 152 BPM Atrial Rate : 304 BPM P-R Int : 000 ms QRS Dur : 138 ms QT Int : 320 ms P-R-T Axes : 000 090 -80 degrees QTc Int : 508 ms Poor data quality, interpretation may be adversely affected Atrial flutter with 2:1 A-V conduction Incomplete right bundle branch block Abnormal ECG No previous ECGs available Confirmed by Niraj Garcia ([id number]) on 07/24/2019 2:32:31 PM Referred By: Confirmed By:Niraj Garcia
--- NOTE | 2019-07-24 14:33 | Electrocardiogram Report ---
Test Reason : Blood Pressure : / mmHG Vent. Rate : 142 BPM Atrial Rate : 308 BPM P-R Int : 000 ms QRS Dur : 080 ms QT Int : 254 ms P-R-T Axes : 250 077 -45 degrees QTc Int : 390 ms Poor data quality, interpretation may be adversely affected Atrial flutter with variable A-V block Nonspecific ST and T wave abnormality Incomplete right bundle branch block Abnormal ECG When compared with ECG of 23-JUL-2019 10:31, (unconfirmed) No significant change Confirmed by Niraj Garcia ([id number]) on 07/24/2019 2:32:55 PM Referred By: Confirmed By:Niraj Garcia
--- NOTE | 2019-07-24 16:58 | Electrocardiogram Report ---
Test Reason : Blood Pressure : / mmHG Vent. Rate : 072 BPM Atrial Rate : 072 BPM P-R Int : 158 ms QRS Dur : 084 ms QT Int : 416 ms P-R-T Axes : 057 057 045 degrees QTc Int : 455 ms Normal sinus rhythm Normal ECG When compared with ECG of 23-JUL-2019 10:32, (unconfirmed) Sinus rhythm has replaced Atrial flutter Vent. rate has decreased BY [address] no longer depressed in Anterolateral leads Confirmed by Niraj Garcia ([id number]) on 07/24/2019 4:58:04 PM Referred By: REFERRED SELF Confirmed By:Niraj Garcia
== END 2019-07-24 16:21 | disposition home or self-care (01) | DRG 310 ==
LOC: ED 10:17 → SUATTDRO 12:49 → 2S 12:49 → INTOOBSV 12:49 → 2S 14:25